=== PATIENT | female | born 1960 | race Caucasian/White ===

== ENCOUNTER 2019-08-19 11:22 | Emergency (ER) | payer OTHER ==
[~2019-08-19] VITALS: Ht 160 cm; Wt 70.3 kg
[~2019-08-19 11:22] MED LIST: CALCIUM 600 +1 EAC1 PO; DICLOFENAC SODI75 MG PO; DIURETIC SOFTGE50 MG PO; LAXATIVE5 M1 PO; NORCO 5-325 TA1 EACH PO; PAXIL10 MG PO; PROBIOTIC1 EAC1 PO; UNICOMPLEX M TA1 TA1 PO
[2019-08-19] MEDS ORDERED: LISINOPRIL2.5 MG PO (11:38)
[2019-08-19] MEDS ORDERED: ZOLOFT50 M1 PO (11:39)
[2019-08-19] MEDS ORDERED: MELOXICAM7.5 MG PO (11:39)
[2019-08-19] MEDS ORDERED: WELLBUTRIN 75 M75 M1 PO (11:39)
[2019-08-19] MEDS ORDERED: POTASSIUM99 M1 PO (11:40)
[2019-08-19 12:13] LABS: ABSOLUTE BASOPHILS 0.1 thou/uL (0.0-0.2); ABSOLUTE LYMPHOCYTES 1.8 thou/uL (0.8-5.3); ABSOLUTE MONOCYTES 0.5 thou/uL (0.0-1.2); ABSOLUTE NEUTROPHILS 6.3 thou/uL (1.6-8.1); BASOPHILS 1.1 %; EOSINOPHILS 0.2 %; HEMATOCRIT 39.2 % (37.0-47.0); LYMPHOCYTES 20.9 %; MCH 31.3 pg (26.0-34.0); MCHC 35.8 g/dL (28.0-37.0); MCV 87.4 fL (80.0-100.0); MONOCYTES 5.3 %; MPV 8.4 fl. (7.2-11.1); NUCLEATED RBCS 0 /100WBC; PLATELET COUNT* 361 thou/uL (150-400); POLYS 72.5 %; RBC 4.48 mil/uL (4.20-5.00); RDW-CV 12.3 % (10.5-14.5); WBC 8.7 thou/uL (4.0-11.0)
[2019-08-19 12:19] LABS: URINE BILIRUBIN NEGATIVE (Negative); URINE BLOOD TRACE (Negative); URINE CLARITY CLEAR; URINE COLOR YELLOW; URINE GLUCOSE-RANDOM NEGATIVE (Negative); URINE KETONES NEGATIVE (Negative); URINE LEUKOCYTES-REFLEX NEGATIVE (Negative); URINE NITRITE-REFLEX NEGATIVE (Negative); URINE PROTEIN NEGATIVE (Negative); URINE UROBILINOGEN 0.2 E.U./dl (0.2-1.0)
[2019-08-19 12:24] LABS: CALCIUM 8.8 mg/dL (8.5-10.1); CREATININE 1.1 mg/dL (0.6-1.3); POTASSIUM 3.5 mmol/L (3.5-5.1)
[2019-08-19 12:28] LABS: ALBUMIN 3.6 g/dL (3.4-5.0); TOTAL BILIRUBIN 0.3 mg/dL (<0.1-1.0); TOTAL PROTEIN 7.1 g/dL (6.4-8.2)
[2019-08-19 12:30] LABS: INFLUENZA A ANTIGEN Negative (Negative); INFLUENZA B ANTIGEN Negative (Negative)
[2019-08-19 14:07] VITALS: BP 110/64
--- NOTE | 2019-08-20 11:06 | EKG ---
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
== END 2019-08-19 14:10 | disposition home or self-care (01) ==
LOC: M.ERS 11:22
PROVIDERS: Family Medicine
DX: B34.9 Viral infection, unspecified (principal); R11.2 Nausea with vomiting, unspecified; R53.1 Weakness; F17.210 Nicotine dependence, cigarettes, uncomplicated; Z88.8 Allergy status to other drugs, medicaments and biological substances